=== PATIENT | male | born 1975 | race Caucasian/White ===

== ENCOUNTER 2021-09-21 16:28 | Emergency (ER) | payer OTHER ==
[2021-09-21] MEDS ORDERED: Oseltamivir 75 MG Cap PO ONE (17:14)
[2021-09-21] MEDS ORDERED: Acetaminophen 325 MG Tab PO ONE (17:14)
== END 2021-09-21 17:39 | disposition home or self-care (01) ==
LOC: JP.ED 16:28
DX: B34.9 Viral infection, unspecified (principal); F17.210 Nicotine dependence, cigarettes, uncomplicated
CPT/HCPCS: 87804; 87804-59; 99282; 99283; A9270-GY